=== PATIENT | female | born 1995 | race Two or more races ===

== ENCOUNTER 2020-11-16 22:55 | Emergency (ER) | payer OTHER ==
[~2020-11-16] VITALS: Ht 162.6 cm; Wt 72.6 kg
[2020-11-16] MEDS ORDERED: diphenhydrAMINE HCL 50 MG/ML VIAL ONE (23:51)
[2020-11-16] MEDS ORDERED: HALOPERIDOL LACTATE INJ 5 MG/ML VIAL ONE (23:51)
[2020-11-16] MEDS ORDERED: LORAZEPAM INJ 2 MG/ML VIAL ONE (23:52)
[2020-11-17] MEDS ORDERED: LORAZEPAM INJ 2 MG/ML VIAL IV ONE
[2020-11-17] MEDS ORDERED: diphenhydrAMINE HCL 50 MG/ML VIAL IM ONE
[2020-11-17] MEDS ORDERED: HALOPERIDOL LACTATE INJ 5 MG/ML VIAL IM ONE
[2020-11-17 00:33] LABS: BASOPHILS # (AUTO) 0.1 K/uL (0.0-0.2); BASOPHILS % (AUTO) 0.9 % (0.0-2.0); EOSINOPHILS % (AUTO) 0.3 % (0.0-6.0); HEMATOCRIT 38 % (33-45); HEMOGLOBIN 12.7 g/dL (11.5-14.8); LYMPHOCYTES # (AUTO) 1.8 K/uL (0.8-4.8); LYMPHOCYTES % (AUTO) 28.9 % (20.0-44.0); MEAN CORPUSCULAR HGB CONC 34 g/dl (31.0-36.0); MEAN CORPUSCULAR VOLUME 92 fL (82-100); MONOCYTES # (AUTO) 0.4 K/uL (0.1-1.30); MONOCYTES % (AUTO) 5.9 % (2.0-12.0); PLATELET COUNT (AUTO) 325 K/uL (150-450); RED BLOOD CELL COUNT(AUTO) 4.11 MIL/uL (4.0-5.2); WHITE BLOOD COUNT (AUTO) 6.3 K/uL (4.3-11.0)
[2020-11-17 00:56] LABS: CALCIUM, SERUM 8.7 mg/dL (8.5-10.1); CARBON DIOXIDE 22 mmol/L (21-32); CHLORIDE 108 mmol/L (98-107); CREATININE 0.7 mg/dL (0.6-1.3); GLUCOSE 102 mg/dL (74-106); POTASSIUM 3.3 mmol/L (3.5-5.1); SODIUM SERUM 146 mmol/L (136-145); UREA NITROGEN, BLOOD 9 mg/dL (7-18)
[2020-11-17 01:04] LABS: ALANINE AMINOTRANSFERASE 25 U/L (12-78); ALBUMIN 4.3 g/dL (3.4-5.0); ALCOHOL, BLOOD 209 mg/dL (0-0); ALKALINE PHOSPHATASE 82 U/L (46-116); ASPARTATE AMINOTRANSFERASE 24 U/L (15-37); BILIRUBIN,DIRECT 0.1 mg/dL (0.0-0.2); BILIRUBIN,TOTAL 0.3 mg/dL (0.2-1.0); TOTAL PROTEIN, SERUM 8.6 g/dL (6.4-8.2)
[2020-11-17 01:09] LABS: ACETAMINOPHEN < 2 ug/ml (10-30)
[2020-11-17 01:56] LABS: BILIRUBIN,URINE NEGATIVE (NEGATIVE); COLOR,URINE YELLOW (YELLOW); LEUKOCYTE ESTERASE ,URINE NEGATIVE (NEGATIVE); NITRITE, URINE NEGATIVE (NEGATIVE); PROTEIN,URINE NEGATIVE (NEGATIVE); UGLUCOSE NEGATIVE (NEGATIVE); UROBILINOGEN,URINE 0.2 EU/dL (0.2)
[2020-11-17 07:23] VITALS: BP 110/61
== END 2020-11-17 07:23 | disposition home or self-care (01) ==
LOC: ER 22:56
DX: R45.851 Suicidal ideations (principal); F10.129 Alcohol abuse with intoxication, unspecified; Y90.7 Blood alcohol level of 200-239 mg/100 ml; F43.10 Post-traumatic stress disorder, unspecified
CPT/HCPCS: 36415; 80048; 80076; 80143; 80307; 80320; 81003; 85025; 87426; 96372 ×2; 96374; 99285; C9803; J1200; J1630; J2060; G0480

== ENCOUNTER 2020-12-07 00:56 | Emergency (ER) | payer OTHER ==
[~2020-12-07] VITALS: Ht 160 cm; Wt 81.6 kg
--- NOTE | 2020-12-07 01:02 | NUR ---
bibra 102 for bizarre behavior. pt admitted on drinking 3/4 of Carmelina bottle. denied SI/HI, pt to bed 11, placed on monitor, vss, nad noted, pending er provider kindra
--- NOTE | 2020-12-07 01:20 | NUR ---
[employer] AT BED SIDE
--- NOTE | 2020-12-07 01:25 | NUR ---
PT PROVIDED WITH WARM BLANKETS AND WATER.
[2020-12-07 01:41] LABS: BASOPHILS # (AUTO) 0.1 K/uL (0.0-0.2); BASOPHILS % (AUTO) 1.4 % (0.0-2.0); BILIRUBIN,URINE Negative (NEGATIVE); COLOR,URINE LIGHT YELLOW (YELLOW); EOSINOPHILS % (AUTO) 1.1 % (0.0-6.0); HEMATOCRIT 38 % (33-45); HEMOGLOBIN 12.7 g/dL (11.5-14.8); LEUKOCYTE ESTERASE ,URINE Negative (NEGATIVE); LYMPHOCYTES # (AUTO) 2.1 K/uL (0.8-4.8); MEAN CORPUSCULAR HGB CONC 34 g/dl (31.0-36.0); MEAN CORPUSCULAR VOLUME 92 fL (82-100); MONOCYTES # (AUTO) 0.5 K/uL (0.1-1.30); MONOCYTES % (AUTO) 6.6 % (2.0-12.0); NEUTROPHILS % (AUTO) 63.9 % (43.0-81.0); NITRITE, URINE Negative (NEGATIVE); PH,URINE 5.5 (5.0-8.0); PLATELET COUNT (AUTO) 345 K/uL (150-450); PROTEIN,URINE Negative (NEGATIVE); RED BLOOD CELL COUNT(AUTO) 4.07 MIL/uL (4.0-5.2); UGLUCOSE Negative (NEGATIVE); UROBILINOGEN,URINE 0.2 EU/dL (0.2); WHITE BLOOD COUNT (AUTO) 7.8 K/uL (4.3-11.0)
[2020-12-07 01:53] LABS: CALCIUM, SERUM 8.4 mg/dL (8.5-10.1); CREATININE 0.7 mg/dL (0.6-1.3); POTASSIUM 3.1 mmol/L (3.5-5.1)
[2020-12-07 01:58] LABS: ALBUMIN 3.8 g/dL (3.4-5.0); BILIRUBIN,DIRECT 0.1 mg/dL (0.0-0.2); BILIRUBIN,TOTAL 0.1 mg/dL (0.2-1.0)
[2020-12-07 02:08] LABS: THYROID STIMULATING HORMONE 0.968 uIU/mL (0.358-3.74)
[2020-12-07] MEDS ORDERED: POTASSIUM CHLORIDE 20 MEQ TAB.PRT.SR PO ONE ×3 (02:24→03:30)
[2020-12-07] MEDS ORDERED: MAGNESIUM OXIDE 400 MG TABLET PO ONE (02:30)
[2020-12-07] MEDS ORDERED: MAGNESIUM OXIDE 400 MG TABLET ONE (02:30)
--- NOTE | 2020-12-07 07:13 | NUR ---
ASSESSED PT ON BED ASLEEP EASILY AROUSABLE, NOT IN RESPIRATORY DISTRESS, V/S STABLE, KEPT RESTED AND COMFORTABLE. WILL CONTINUE TO MONITOR.
--- NOTE | 2020-12-07 09:21 | NUR ---
FAXED CLINICALS TO [facility]TA[facility]
--- NOTE | 2020-12-07 09:37 | NUR ---
COVID SPECIMEN OBTAINED AND SENT TO LAB.
--- NOTE | 2020-12-07 10:36 | NUR ---
[facility] DIRECT NUMBER.
--- NOTE | 2020-12-07 11:54 | NUR ---
CALLED INTAKE PT ACCEPTED UNDER DR. RODRIGUEZ AFTER 1400 PLEASE CALL [phone] FOR REPORT.
--- NOTE | 2020-12-07 12:00 | NUR ---
[facility] CALLED [facility] SET UP TRANSPPORT FOR [phone]
--- NOTE | 2020-12-07 13:42 | NUR ---
REPORT GIVEN TO EMS FOR PT TRANSFER TO [facility].
[2020-12-07 13:49] VITALS: BP 124/78
== END 2020-12-07 13:50 ==
LOC: ER 01:00
DX: R45.851 Suicidal ideations (principal); F10.129 Alcohol abuse with intoxication, unspecified; Y90.7 Blood alcohol level of 200-239 mg/100 ml; F43.10 Post-traumatic stress disorder, unspecified; E87.6 Hypokalemia; Z20.822 Contact with and (suspected) exposure to COVID-19
CPT/HCPCS: 36415; 80048; 80076; 80143; 80307; 80320 ×2; 81003; 84443; 84703; 85025; 87426; 99291; C9803; G0480